=== PATIENT | female | born 1955 | race Caucasian/White ===

== ENCOUNTER → 2019-01-23 | Outpatient (CLI) | payer BC ==
--- NOTE | 2019-01-23 12:51 | PCVCIMAG ---
APPROVED REPORT Indications Bruit Risk Factors Hyperlipidemia Doppler Spectral Velocity Analysis PSV / EDVPSV / EDV ECA (R) 90 / 17 cm/sECA (L) 76 / 12 cm/s dICA (R) 86 / 42 cm/sdICA (L) 65 / 26 cm/s Brian (R) 85 / 38 cm/smICA (L) 78 / 32 cm/s pICA (R) 68 / 25 cm/spICA (L) 64 / 19 cm/s Bulb (R) 53 / 23 cm/sBulb (L) 51 / 17 cm/s dCCA (R) 73 / 22 cm/sdCCA (L) 89 / 22 cm/s mCCA (R) 82 / 26 cm/smCCA (L) 92 / 27 cm/s Vert (R) 59 / 14 cm/sVert (L) 34 / 17 cm/s ICA/CCA 1.05ICA/CCA 0.84 Basic Measurements Blood Pressure: Pulses: Right Left RightLeft Brachial(Sitting) 124/09yrGy550/88mmHgTemporal Real Time B-Mode Imaging Vert. (R)AntegradeVert. (L)Antegrade Findings The right carotid bulb has mild plaque. The right proximal internal carotid artery shows no significant stenosis. The right common carotid artery shows no significant stenosis. The right external carotid artery shows no significant stenosis. The left carotid bulb has moderate plaque. The left proximal internal carotid artery shows <40% stenosis. The left common carotid artery shows no significant stenosis. The left external carotid artery shows no significant stenosis. Conclusion 1. Right internal carotid plaquing without significant stenosis 2. Left internal carotid artery stenosis (<40%) 3. Antegrade vertebral flow
--- NOTE | 2019-01-23 13:44 | PCVCIMAG ---
EXAM: AORTOILIAC DUPLEX INDICATION: Palpable abdominal fullness. Family history of aortic aneurysm. FINDINGS: AORTA: Suprarenal aorta measures maximum diameter of 2.6 cm. There is not a fusiform infrarenal aortic aneurysm. The infrarenal aorta measures maximum diameter of 2.2 cm. No aortic stenosis. RIGHT COMMON ILIAC ARTERY: Maximum diameter is 1.1 cm. No significant stenosis. RIGHT EXTERNAL ILIAC ARTERY: No significant stenosis. LEFT COMMON ILIAC ARTERY: Maximum diameter is 1.3 cm. No significant stenosis. LEFT EXTERNAL ILIAC ARTERY: No significant stenosis. IMPRESSION: No abdominal aortic aneurysm. No aortoiliac stenosis seen. LOC:[id number]
== END | disposition home or self-care (01) ==
LOC: PCVCIMAG 11:50
PROVIDERS: ATTEND Internal Medicine Cardiovascular Disease
DX: I65.23 Occlusion and stenosis of bilateral carotid arteries (principal); R09.89 Other specified symptoms and signs involving the circulatory and respiratory systems; Z82.49 Family history of ischemic heart disease and other diseases of the circulatory system
CPT/HCPCS: 93880; 93978

== ENCOUNTER → 2019-02-01 | Outpatient (CLI) | payer BC ==
--- NOTE | 2019-02-01 15:44 | PCVCIMAG ---
APPROVED REPORT Study performed: 02/01/2019 11:36:35 Exam: Stress Echocardiogram Indication: CAD , Palpitations, Fatigue,Elevated coronary calcium score Patient Location: Echo lab Stress Nurse: Vicki Thorne RN Room #: 2 Status: routine Ht: 5 ft 10 in HR: 100 bpm BP: 120/80 mmHg Rhythm: NSR Medical History Medical History: Hyperlipidemia Cardiac Risk Factors: Tobacco History (Current/Recent), FHX of CAD Previous Cardiac Procedures: Cath Pretest Chest Pain Characteristics: No chest pain Exercise History: Physically active Procedure The patient underwent an Exercise Stress Test using the Eben Protocol. Blood pressure, heart rate, and EKG were monitored. An Echocardiogram was performed by lawn care technician in four stages in quad fashion. At peak stress, four selected images were obtained and placed side by side with resting images for comparison. Stress Test Details Stress Test: Exercise stress testing was performed using a Eben protocol. HR Resting HR: 100 bpmMax Heart Rate (APMHR): 156 bpm Max HR Achieved: 164 bpmTarget HR (85% APMHR): 132 bpm % of APMHR: 105 Recovery HR: 110 bpm HR response to stress: Normal HR response to stress,borderline tachycardia at rest BP Resting BP: 120/80 mmHg Max BP: 160/62 mmHg Recovery BP: 120/64 mmHg BP response to stress: Normal blood pressure response to stress. ECG Resting ECG: Sinus Tachycardia,Pulmonary disease pattern, Stress ECG: Inferior WA pattern ST Change: Marked abnormalityIII,aVF,V1,V2,V3 Maximum ST Deviation: 3.0 mm Arrhythmia: Frequent PVCs, short run abbarency peak Recovery ECG: Short run BBB, NSR with marked ST depression Recovery ST Change: Moderately positive Recovery Arrhythmia: frequent PVCs Clinical Reason for Termination: Maximal effort Stress Symptoms: fatigue Exercise duration: 8 min 16 sec Highest Stage Achieved: Stage 3: 3.4 mph at 14% grade. Exercise capacity: 10.4 METs Overall Exercise Capacity for Age: Normal Scale: Active Angina Score: None No complications. Stress ECG Conclusion The patient exercised according to the EBEN protocol for 8:16 mins; achieving a work level of 10.4 METS. The resting heart rate of 100 bpm radha to a maximum heart rate of 164 bpm. This value represent 105% of the maximal, age-predicted heart rate. The resting blood pressure of 120/80 mmHg, radha to a maximum blood pressure of 160/62 mmHg. The exercise test was stopped due to . Soto Treadmill Score is -7.0 which is Moderate risk. Pre-Stress Echo The resting Echocardiogram showed normal left ventricular contractility with an estimated Ejection Fraction of about 55-60%. Post-Stress Echo The stress Echocardiogram showed normal left ventricular contractility with an estimated Ejection Fraction of about 60-65%. The stress Echocardiogram demonstrated wall motion abnormality in the distal inferior,anterior and apex . Conclusion Clinical Response: Non-ischemic Exercise Capacity: Average Stress ECG Response: Ischemic Stress Echo Images: Ischemic Abnormall stress echocardiogram with maximal exercise stress. <Conclusion> Abnormall stress echocardiogram with maximal exercise stress.
== END | disposition home or self-care (01) ==
LOC: PCVCIMAG 11:19
PROVIDERS: ATTEND Internal Medicine Cardiovascular Disease
DX: I25.10 Atherosclerotic heart disease of native coronary artery without angina pectoris (principal); R00.2 Palpitations; R53.83 Other fatigue; R93.1 Abnormal findings on diagnostic imaging of heart and coronary circulation
CPT/HCPCS: 93325; 93351